=== PATIENT | female | born 1945 | race Caucasian/White ===

== ENCOUNTER → 2017-02-10 | Outpatient (CLI) | payer MEDICARE ==
--- NOTE | 2017-02-10 08:48 | RAD ---
EXAM: Dual energy x-ray absorptiometry (DEXA). HISTORY: Postmenopausal female presents for osteoporosis screening. COMPARISON: None. TECHNIQUE: Dual energy x-ray absorptiometry of the lumbar spine and left hip was performed. FINDINGS: The average bone mineral density in the 1st through 4th lumbar vertebrae is 1.413 g/cmxcm, corresponding with a T-score of 1.9. The average total bone mineral density in the left femoral neck is 0.782 g/cmxcm, corresponding with a T-score of -2.1. IMPRESSION: 1. Osteopenia measured at the left femoral neck. 2. Normal bone mineral density measured at the lumbar spine.
--- NOTE | 2017-02-10 09:10 | RAD ---
DATE: 02/10/2017 EXAM: MAMMO RALF SCREENING BILATERAL HISTORY: 71-year-old female presents for screening mammography. COMPARISON: 02/08/2016 and 02/09/2015 TECHNIQUE: Full field digital craniocaudal and mediolateral oblique 2D and 3D tomosynthesis images of both breasts were obtained. This study was interpreted with the benefit of Computerized Aided Detection (CAD). FINDINGS: Breast parenchymal composition: Level A. The breast parenchyma shows scattered fibroglandular densities. There is no suspicious mass, calcification or architectural distortion within either breast. There is stable nodules within the lateral left breast. There are a few benign calcifications bilaterally. IMPRESSION: No new suspicious mammographic finding. BI-RADS CATEGORY: 2 BENIGN FINDING RECOMMENDED FOLLOW-UP: 12M 12 MONTH FOLLOW-UP PQRS compliance statement: Patient information was entered into a reminder system with a target due date in one year for the next mammogram. Mammography is a sensitive method for finding small breast cancers, but it does not detect them all and is not a substitute for careful clinical examination. A negative mammogram does not negate a clinically suspicious finding and should not result in delay in biopsying a clinically suspicious abnormality. "Our facility is accredited by the [employer] Mammography [employer]."
== END | disposition home or self-care (01) ==
LOC: MAMMO 07:44
PROVIDERS: ATTEND Nurse Practitioner Family
DX: Z12.31 Encounter for screening mammogram for malignant neoplasm of breast (principal); M85.88 Other specified disorders of bone density and structure, other site; Z78.0 Asymptomatic menopausal state
CPT/HCPCS: 77063; 77080; G0202; 77067

== ENCOUNTER → 2018-03-31 | Outpatient (CLI) | payer MEDICARE ==
--- NOTE | 2018-03-31 09:23 | RAD ---
DATE: 03/31/2018 EXAM: MAMMO RALF SCREENING BILATERAL HISTORY: Routine screening COMPARISON: 02/10/2017 This study was interpreted with the benefit of Computerized Aided Detection (CAD). The breast parenchyma is primarily fatty replaced. Breast parenchyma level density A. FINDINGS: 2-D and 3-D tomosynthesis imaging was performed in CC and MLO projections. There are unchanged small benign-appearing lymph node type densities in the lateral aspect of the left breast. No new or enlarging breast densities are seen. Scattered benign type calcifications are present in both breasts. No suspicious microcalcifications have developed. IMPRESSION: Stable mammograms without evidence of malignancy. BI-RADS CATEGORY: 2 BENIGN FINDING(S) RECOMMENDED FOLLOW-UP: 12M 12 MONTH FOLLOW-UP PQRS compliance statement: Patient information was entered into a reminder system with a target due date for the next mammogram. Mammography is a sensitive method for finding small breast cancers, but it does not detect them all and is not a substitute for careful clinical examination. A negative mammogram does not negate a clinically suspicious finding and should not result in delay in biopsying a clinically suspicious abnormality. "Our facility is accredited by the [employer] Mammography [employer]."
== END | disposition home or self-care (01) ==
LOC: MAMMO 08:16
PROVIDERS: ATTEND Nurse Practitioner Family
DX: Z12.31 Encounter for screening mammogram for malignant neoplasm of breast (principal)
CPT/HCPCS: 77063; 77067

== ENCOUNTER → 2019-04-20 | Outpatient (CLI) | payer MEDICARE ==
--- NOTE | 2019-04-20 09:32 | RAD ---
DATE: 04/20/2019. EXAM: MAMMO RALF SCREENING BILATERAL. HISTORY: Routine mammographic screening. COMPARISON: 03/31/2018. This study was interpreted with the benefit of Computerized Aided Detection (CAD). FINDINGS: Breast Density: FATTY The breast parenchyma is primarily fatty replaced. Breast parenchyma level density A.. There are no suspicious masses, microcalcifications or architectural distortion. Scattered and secretory calcifications are benign. The parenchymal pattern is stable. BI-RADS CATEGORY: 2 BENIGN FINDING(S). RECOMMENDED FOLLOW-UP: 12M 12 MONTH FOLLOW-UP. PQRS compliance statement: Patient information was entered into a reminder system with a target due date 04/20/2020 for the next mammogram. Mammography is a sensitive method for finding small breast cancers, but it does not detect them all and is not a substitute for careful clinical examination. A negative mammogram does not negate a clinically suspicious finding and should not result in delay in biopsying a clinically suspicious abnormality. "Our facility is accredited by the [employer] Mammography [employer]."
== END | disposition home or self-care (01) ==
LOC: MAMMO 07:37
PROVIDERS: ATTEND Physician Assistant Medical
DX: Z12.31 Encounter for screening mammogram for malignant neoplasm of breast (principal); N64.89 Other specified disorders of breast
CPT/HCPCS: 77063; 77067

== ENCOUNTER → 2020-04-23 | Outpatient (CLI) | payer MEDICARE ==
--- NOTE | 2020-04-23 18:32 | RAD ---
DATE: 04/23/2020 8:00 AM EXAM: MAMMO RALF SCREENING BILATERAL HISTORY: Screening COMPARISON: 04/20/2019 Bilateral CC and MLO views of the breasts were performed. Bilateral breast tomosynthesis was performed in CC and MLO projections. This study was interpreted with the benefit of Computerized Aided Detection (CAD). FINDINGS: Breast Density: FATTY The Breast Parenchyma is primarily fatty replaced. Breast parenchyma level density A. No suspicious masses, microcalcifications or architectural distortion is present to suggest malignancy in either breast. The visualized axillae are unremarkable. IMPRESSION: No mammographic evidence of malignancy. BI-RADS CATEGORY: 1 NEGATIVE RECOMMENDED FOLLOW-UP: 12M 12 MONTH FOLLOW-UP Annual screening mammography is recommended, unless clinically indicated sooner based on symptoms or change in physical exam. PQRS compliance statement: Patient information was entered into a reminder system with a target due date 04/24/2021 for the next mammogram. Mammography is a sensitive method for finding small breast cancers, but it does not detect them all and is not a substitute for careful clinical examination. A negative mammogram does not negate a clinically suspicious finding and should not result in delay in biopsying a clinically suspicious abnormality. "Our facility is accredited by the [employer] Mammography [employer]."
== END ==
LOC: MAMMO 07:58
PROVIDERS: ATTEND Physician Assistant Medical
DX: Z12.31 Encounter for screening mammogram for malignant neoplasm of breast (principal)
CPT/HCPCS: 77063; 77067

== ENCOUNTER → 2021-04-23 | Outpatient (CLI) | payer MEDICARE ==
--- NOTE | 2021-04-23 15:30 | RAD ---
EXAM: BILATERAL DIGITAL 3D SCREENING MAMMOGRAPHY. HISTORY: Routine mammographic screening. TECHNIQUE: Bilateral digital 3D and tomographic images were obtained in CC and MLO projections. Compu ter-aided detection was applied. COMPARISON: 04/23/2020, 04/20/2019. COMPOSITION: A. The breasts are almost entirely fatty. FINDINGS: There is a new 7 x 3 mm mass 4.8 cm superomedial to the right nipple, indeterminate. Small nodules elsewhere bilaterally are stable. Scattered and seek territory calcifications are benig n. BI-RADS CATEGORY 0: Incomplete--Needs Additional Imaging Evaluation. RECOMMENDATION: 1. Sonography of a new 7 mm nodule 4.8 cm superomedial to the right nipple. Electronically signed by: Maria R De Paz MD (04/23/2021 3:28 PM) [id number]
== END ==
LOC: MAMMO 11:19
PROVIDERS: ATTEND Physician Assistant Medical
DX: Z12.31 Encounter for screening mammogram for malignant neoplasm of breast (principal); N64.89 Other specified disorders of breast
CPT/HCPCS: 77063; 77067

== ENCOUNTER → 2021-05-06 | Outpatient (CLI) | payer MEDICARE ==
--- NOTE | 2021-05-06 14:22 | RAD ---
EXAMINATION: US BREAST RT History: Recalled from screening mammogram for right breast mass Comparison: Screening mammogram 04/23/2021. Technique: Ultrasound of the upper outer right breast in area of concern was performed. Please note, the screening mammogram described a mass in the superior medial right breast, however the circled mas s is in the superior lateral right breast. Findings: There is a hypoechoic mass in the right breast at 9:00, 3.5 cm from the nipple. This is a parallel in orientation and measures 5 x 4 x 4 m. The mass is irregular with a hyperechoic halo and posterior ac oustic shadowing. IMPRESSION: Suspicious mass in the right breast at 9:00, 3.5 cm from the nipple. Recommend ultrasound-guided biop sy. BI-RADS Category 4: Suspicious. Findings and recommendations were discussed over the phone by Dr. Santillan with the patient at the ti me of the exam. She was in agreement with the plan. This was also discussed by Dr. Santillan with Dr. Dubose's office at 2:20 PM on 05/06/2021. Electronically signed by: Marta Santillan MD (05/06/2021 2:20 PM) [id number]
== END ==
LOC: US 12:37
PROVIDERS: ATTEND Physician Assistant Medical
DX: R92.2 Inconclusive mammogram (principal)
CPT/HCPCS: 76641

== ENCOUNTER → 2021-11-29 | Outpatient (CLI) | payer MEDICARE ==
[2021-11-29 09:11] LABS: CALCIUM 9.5 mg/dL (8.5-10.1); CREATININE 1.2 mg/dL (0.6-1.0); GFR 43.7
== END ==
LOC: LAB 07:42
PROVIDERS: ATTEND Internal Medicine Nephrology
DX: I12.9 Hypertensive chronic kidney disease with stage 1 through stage 4 chronic kidney disease, or unspecified chronic kidney disease (principal); N18.32 Chronic kidney disease, stage 3b; Z68.37 Body mass index [BMI] 37.0-37.9, adult
CPT/HCPCS: 36415; 80048

== ENCOUNTER → 2022-03-11 | Outpatient (CLI) | payer MEDICARE ==
[2022-03-11 08:26] LABS: ALBUMIN 3.6 g/dL (3.4-5.0); CALCIUM 9.2 mg/dL (8.5-10.1); CREATININE 1.3 mg/dL (0.6-1.0); GFR 39.7; MAGNESIUM 1.9 mg/dL (1.8-2.4); PHOSPHORUS 3.3 mg/dL (2.6-4.7); POTASSIUM 4.1 mmol/L (3.5-5.1)
[2022-03-12 14:11] LABS: CALCIUM PTH 9.6 mg/dL (8.7-10.3); CREATININE PTH 1.31 mg/dL (0.57-1.00); PTH INTACT 63 pg/mL (15-65)
[2022-03-13 07:54] LABS: CREATININE,RANDOM URINE 148.4 mg/dL (Not Establ.)
== END ==
LOC: LAB 07:26
PROVIDERS: ATTEND Internal Medicine Nephrology
DX: I12.9 Hypertensive chronic kidney disease with stage 1 through stage 4 chronic kidney disease, or unspecified chronic kidney disease (principal); N18.32 Chronic kidney disease, stage 3b; Z68.37 Body mass index [BMI] 37.0-37.9, adult
CPT/HCPCS: 80069; 82728; 83540; 83550; 83735; 83970